=== PATIENT | male | born 1980 | race African-American/Black ===

== ENCOUNTER 2017-11-11 10:55 | Emergency (ER) | payer BC, OTHER ==
[~2017-11-11] VITALS: Ht 188 cm; Wt 89.0 kg
[~2017-11-11 10:55] MED LIST: MUCINEX; [UNRECOGNIZED DRUG - OTHER]
[2017-11-11 12:29] VITALS: BP 146/98
== END 2017-11-11 12:14 | disposition home or self-care (01) ==
LOC: ER 10:55
DX: M70.31 Other bursitis of elbow, right elbow (principal)
CPT/HCPCS: 99283